=== PATIENT | female | born 1975 | race Caucasian/White ===

== ENCOUNTER 2018-05-05 10:14 | Emergency (ER) | payer MEDICAID, OTHER ==
[~2018-05-05] VITALS: Ht 157.5 cm; Wt 47.6 kg
[~2018-05-05 10:14] MED LIST: ALBUTEROL INH; FLUT1DIS5 INH
[2018-05-05 10:19] VITALS: BP_SYST 138
[2018-05-05] MEDS ORDERED: KETAMINE HCL 500 MG/10 ML VIAL IVP ONE ×2 (10:45→12:15)
[2018-05-05] MEDS ORDERED: fentaNYL CITRATE/PF 100 MCG/2 ML AMP IVP ONE ×2 (10:45→13:30)
[2018-05-05] MEDS ORDERED: KETAMINE HCL IN 0.9 % NACL 30 MG/3 ML SYRINGE IVP ONE (11:45)
[2018-05-05 14:22] VITALS: BP_SYST 143
== END 2018-05-05 14:22 | disposition home or self-care (01) ==
LOC: SED 10:14
DX: G89.29 Other chronic pain (principal); M54.5 Low back pain; J45.909 Unspecified asthma, uncomplicated; R03.0 Elevated blood-pressure reading, without diagnosis of hypertension; Z88.0 Allergy status to penicillin; Z87.891 Personal history of nicotine dependence
CPT/HCPCS: 81025; 96374; 96375; 96376; 99284; J3010